=== PATIENT | female | born 1945 | race Two or more races ===

== ENCOUNTER 2024-01-12 13:26 | Emergency (ER) | payer MEDICAID, SELFPAY ==
[2024-01-12 13:40] VITALS: BP 147/76; PULSE 95; RESP 18; TEMP 36.8; O2SAT 95; BMI 22.3
--- NOTE | 2024-01-12 13:40 | PD.EDRME ---
Rapid Medical Screening Exam RME Arrival date/time: 01/12/24 13:26 78-year-old female presents emergency department complaint of elevated blood sugar for greater than 1 month Chief Complaint: Recheck/Abnormal Lab/Rx
[2024-01-12 13:55] LABS: Base Excess, Venous 2 (-3-3); O2 Saturation, Venous 31 % (96-97); PCO2, Venous 51 mmHg (36-56); PO2, Venous 19 mmHg (15-58); pH, Venous 7.36 (7.33-7.66)
[2024-01-12 14:02] LABS: Basophils % (Auto) 0 % (0-2.5); Eosinophils # (Auto) 0.1 Thou/mm3 (0.0-0.5); Eosinophils % (Auto) 1 % (0-10); Hematocrit 44.8 % (36.0-46.0); Hemoglobin 15.2 g/dL (12.0-16.0); Immature Granulocytes % (Auto) 0 % (0-0); Immature Granulocytes Auto 0.04 Thou/mm3 (0.00-0.00); Lymphocytes # (Auto) 2.2 Thou/mm3 (1.0-4.8); Lymphocytes % (Auto) 23 % (10-50); Mean Corpuscular HGB Conc 33.9 g/dl (31.0-37.0); Mean Corpuscular Hemoglobin 29.9 pg (25.0-35.0); Mean Corpuscular Volume 88 fL (80-100); Monocytes # (Auto) 0.4 Thou/mm3 (0.0-0.8); Monocytes % (Auto) 5 % (0-12); Neutrophils % (Auto) 72 % (37-80); Nucleated Red Blood Cell % 0 /100 WBC (0); Platelet Count 419 Thou/mm3 (140-440); RDW Standard Deviation 38.7 fL (36.4-46.3); Red Blood Count 5.08 Miln/mm3 (4.00-5.20); White Blood Count 9.8 Thou/mm3 (3.6-11.0)
[2024-01-12 14:14] LABS: Beta Hydroxybutyrate 2.4 mmol/L (<0.6)
[2024-01-12 14:25] LABS: Collection Type, Urine Clean Catch
[2024-01-12 14:29] LABS: HCG Qualitative,Urine Negative
[2024-01-12 14:32] LABS: Alanine Aminotransferase 14 U/L (10-49); Albumin, Serum 4.9 gm/dL (3.4-4.8); Albumin/Globulin Ratio 1.6 (1.2-2.2); Alkaline Phosphatase 119 U/L (46-116); Anion Gap 9 (7-16); Aspartate Amino Transferase 16 U/L (0-34); BUN/Creatinine Ratio 13 Ratio (12-20); Blood Urea Nitrogen 15 mg/dL (9-23); Calcium 10.5 mg/dL (8.3-10.6); Calcium (Corrected) 10.5 mg/dL (8.5-10.1); Carbon Dioxide 27.9 mMol/L (20.0-31.0); Chloride 94 mMol/L (98-107); Creatinine (Component) 1.2 mg/dL (0.6-1.3); Estimated Creatinine Clearance 32.5 mL/min (>60); Osmolality,Calculated 289 (275-295); Potassium 5.1 mMol/L (3.4-5.1); Sodium 131 mMol/L (136-145); Total Protein 7.9 gm/dL (5.7-8.2); eGFR 47 See Note
[2024-01-12 14:34] LABS: Glucose 559 mg/dL (74-106)
[2024-01-12 14:38] LABS: Bilirubin,Urine Negative (Negative); Blood,Urine Negative (Negative); Clarity,Urine Clear (Clear/Hazy); Color,Urine Colorless (Lt Yel-Yel); Culture Indicated,Urine Not Indicated; Glucose, Urine 4+ (Negative); Ketones,Urine 2+ (Negative); Leukocyte Esterase,Urine Positive (Negative); Nitrite,Urine Negative (Negative); PH,Urine 6.5 (5.0-7.0); Protein,Urine Negative (Neg - Trace); RBC,Urine 6 /hpf (0-3); Specific Gravity,Urine 1.036 (1.001-1.035); Squamous Epithelial Cell,Urine < 1 /hpf (0-5); Urobilinogen,Urine Negative mg/dL (0.0-1.0); WBC,Urine 4 /hpf (0-5)
--- NOTE | 2024-01-12 14:55 | EDNOTE_ITS ---
ED Recheck Abnl Lab Rx-E/HPI General Chief Complaint: Recheck/Abnormal Lab/Rx Stated Complaint: High blood sugar X 2 days Time Seen by Provider: 01/12/24 14:48 Arrival date/time: 01/12/24 13:26 RME / HPI RME / HPI narrative: 78-year-old female patient with significant history of hypertension diabetes mellitus, on Jardiance and losartan, came in for evaluation regarding blood sugar of 501 yesterday. Patient denies any vomiting denies any dizziness denies any abdominal pain denies any chest pain denies any complaints. Patient told me that she has been taking her Jardiance with good compliance. Related Data Home Medications ?Medication ?Instructions ?Recorded ?Confirmed Losartan Potassium * (COZAAR *) 50 mg PO QDAY #0 tabs 08/10/16 metformin 500 mg tablet 500 mg PO BIDAC #0 tabs 08/10/16 (Glucophage) Allergies Allergy/AdvReac Type Severity Reaction Status Date / Time NKA* Allergy Uncoded 08/10/16 09:35 Review of Systems Review of Systems Narrative Review of Systems: Review of system reviewed and within normal limits except mentioned in HPI ED Exam Narrative Physical exam: VITAL SIGNS: Reviewed. GENERAL APPEARANCE: Alert and interactive, follows commands, no acute distress, HEAD AND FACE: Non-traumatic. ENT: PERRL, pink conjunctivitis, eyelid no trauma, Mucous membrane moist. NECK: Supple, nontender, no nuchal rigidity. CHEST: No tenderness, no crepitus, no paradoxical movement, no retractions. LUNGS: Clear, well ventilated, symmetric, no rales, no wheezing, no ronchi, no stridor, good breath sounds bilaterally. HEART: Regular rate, regular rhythm, no murmur, no gallops. ABDOMEN: Soft, positive bowel sounds, nondistended, no guarding, nontender, no rebound, no masses, RECTAL: Deferred. GENITAL: Deferred. NEUROLOGICAL: Gross motor function intact sensory function intact, Appropriate for age. MUSCULOSKELETAL: low back nontender, full range of motion. EXTREMITIES: Nontender, full range of motion. SKIN: Color pink, dry, no rash, no lacerations, no abrasions, no contusions. LYMPHATICS: Deferred. Course Quality Measures none Orders Category Date Time Status Bedside Blood Glucose NOW Care 01/12/24 13:29 Active Beta Hydroxybutyrate Stat Lab 01/12/24 13:50 Completed CBC Stat Lab 01/12/24 13:50 Completed Comprehensive Metabolic Panel Stat Lab 01/12/24 13:50 Completed HCG Qualitative,Urine Stat Lab 01/12/24 14:17 Completed UA, C/S IF [Urinalysis, C/S if Indicated] Stat Lab 01/12/24 14:17 Completed VBG [Venous Blood Gas] Stat Lab 01/12/24 13:50 Completed Insulin Regular Med 01/12/24 14:49 Discontinued 10 unit SC X1 ONE Sodium Chloride 0.9% 1000 ml [Ns] 1,000 ml Med 01/12/24 14:50 Discontinued IV 999 mls/hr Vital Signs Vital signs: Vital Signs Temperature 98.3 F 01/12/24 13:40 Pulse Rate 95 01/12/24 13:40 Respiratory Rate 18 01/12/24 13:40 Blood Pressure 147/76 H 01/12/24 13:40 Pulse Oximetry (%) 95 01/12/24 13:40 Oxygen Delivery Method Room Air 01/12/24 13:40 Recheck / Abnormal Lab / Rx MDM Narrative MDM Narrative:: 78-year-old female patient with significant history of hypertension diabetes mellitus, on Jardiance and losartan, came in for evaluation regarding blood sugar of 501 yesterday. Patient denies any vomiting denies any dizziness denies any abdominal pain denies any chest pain denies any complaints. Patient told me that she has been taking her Jardiance with good compliance. Patient's blood sugar today was noted to be 515, acetone level of 2.4. There is no sign of diabetic ketoacidosis. Patient received IV fluids for hydration and insulin subcu. Blood sugar was noted to be 398 prior to discharge. Patient is denying any complaints. Patient data External records reviewed:: None Clinical information provided by:: none Social determinants that could affect healthcare access:: none Patient has the following chronic illnesses:: Diabetes hypertension How is presenting disease/condition affected by chronic disease/condition?: exacerbated by Evaluation data The following diagnostics were reviewed and interpreted by me:: lab results Lab and/or radiology exams considered but not ordered:: None Interpretation Summary: Blood sugar of 515 acetone of 2.4 with no sign of DKA. The rest of the labs unremarkable. Medications / Prescriptions Medications or Prescriptions considered but not ordered:: None Medication administrations:: Medication Administration History Discontinued Medications Sodium Chloride (Ns) 1,000 mls @ 999 mls/hr IV .Q1H1M ONE Stop: 01/12/24 15:50 Last Infusion: 01/12/24 16:43 Dose: Infused Documented By: Admin: 01/12/24 16:03 Dose: 999 mls/hr Documented By: Insulin Human Regular (Insulin Hum Regular 1 Unit/0.01 Ml (Per Unit)) 10 unit SC X1 ONE Stop: 01/12/24 14:50 Last Admin: 01/12/24 16:01 Dose: 10 unit Documented By: Co-signed By: OSMANY IV fluids for hydration and insulin 10 units subcu Consultations Consultation(s) initiated? (list below): No Diagnosis Recheck Differential Diagnosis: other (Hyperglycemia, DKA, poor medication compliance) Most likely diagnosis given after review of the tests above:: Hyperglycemia Admission Indicated Admission indicated?: not indicated Explain why admission is indicated or not indicated:: Stable Admission Request Was there a request for admission?: No Disposition Plan Disposition Plan: Discharge Discharge Attestation Discharge Attestation: The patient and all family members were given an opportunity to ask questions and understood the discharge instructions. Discharge instructions specifically effects, indications for sooner follow up or return to the emergency department, and the expected course of current diagnosis. Patient condition: Stable Discharge Plan Plan Patient Disposition: HOME (Self Care) Disposition Comment: Stable Prescriptions/Referrals Prescriptions/Med Rec: No Action metformin [Glucophage] 500 MG tablet 500 mg PO BIDAC Qty: 0 Losartan Potassium * (COZAAR *) 50 MG tablet 50 mg PO QDAY Qty: 0 Referrals: Attila Morton PA-C [Primary Care Provider] - In 1 week Problem List Clinical Impression: Hyperglycemia Patient/Caregiver Discharge Instructions Discharge Activity: activity as tolerated Education Materials: High Blood Sugar (Hyperglycemia) Additional Instructions: Thank you for the opportunity for serving you today. You are stable for discharged . You are advised to: Follow-up with your PCP in 1 to 2 days Return to ED for worsening of symptoms Increase oral fluids Take medication as prescribed for your diabetes Please decrease intake of carbohydrates. Print Language: Icelandic Stand Alone Forms: Radha Award Info., Patient Portal Info Letter BUSTER/IVANA Supervising Physician SUSANA Supervising Physician: MD Natalie
[2024-01-12] MEDS: INSULIN HUM REGULAR 1 UNIT/0.01 ML (PER UNIT) 10 UNIT SC (16:01)
[2024-01-12] MEDS: SODIUM CHLORIDE 0.9% 1000 ML 1,000 ML 999 ML IV (16:03)
[2024-01-13 07:24] LABS: Misc Send Out* See Sep Rpt
== END 2024-01-12 18:22 | disposition home or self-care (01) ==
PROVIDERS: Nurse Practitioner Primary Care; Emergency Provider Emergency Medicine; PCP Physician Assistant
DX: E11.65 Type 2 diabetes mellitus with hyperglycemia (principal); I10 Essential (primary) hypertension; Z79.84 Long term (current) use of oral hypoglycemic drugs; Z79.899 Other long term (current) drug therapy
CPT/HCPCS: 36415; 80053; 81001; 81025; 82010; 82803; 83036; 85025; 96360; 96372; 99284; J1815; J7030